=== PATIENT | male | born 1965 | race Caucasian/White ===

== ENCOUNTER → 2019-04-18 | Outpatient (CLI) | payer OTHER ==
[~2019-04-18] MED LIST: 0.9 % SODIUM CHLORIDE 10 ML DISP.SYRIN. ID ONE; ASPI81TA50 PO; BUDE10.2 IH; GADOTERATE 5 MMOL/10ML VIAL. INT ART ONE; IOHEXOL 300 MG/ML 50 ML VIAL. INT ART ONE; LIDOCAINE 1% Multi-Dose 20 ML VIAL. ID ONE; VALS40TA2 PO
--- NOTE | 2019-04-18 16:47 | KCIC ---
PROCEDURE: Left shoulder injection using fluoroscopic guidance, prior to MR. HISTORY: Shoulder pain. TECHNIQUE: The procedure was explained to the patient as were potential risks, including among others infection, bleeding or allergic reaction. All questions were answered. Informed written and verbal consent was obtained. The shoulder was prepped and draped in the usual sterile manner. Following administration of local anesthetic, a 22-gauge needle was advanced into the anterior shoulder. Following negative aspiration, 12 cc of a solution of 5cc Omnipaque-300 contrast, 5 cc 1% lidocaine, 10 cc normal saline, and 0.1 cc gadolinium was injected without difficulty. The needle was removed. There was good hemostasis at the injection site. The patient left in stable condition without immediate complication. A single spot image is obtained. FLUOROSCOPY TIME:?22 seconds Electronically signed by: Rafael Castillo MD (04/18/2019 4:44 PM) [id number]
--- NOTE | 2019-04-18 16:47 | KCIC ---
MRI arthrogram of the left shoulder HISTORY: Left AC joint pain. Shoulder pain. Injury 3 months ago. TECHNIQUE: Routine multiplanar sequences are obtained. FINDINGS: Acromioclavicular joint is mildly degenerative. Full-thickness rotator cuff tear of the supraspinatus tendon measures 3 cm AP diameter with 3 cm retraction of the articular side fibers. Partial tearing through the more posterior rotator cuff. Partial subscapularis tendon tear. Mild rotator cuff muscle atrophy. Contrast enters the subdeltoid bursa. Glenohumeral joint is intact. Posterior through inferior labral tear Biceps tendinosis. Slight medial shift of the tendon at the upper bicipital groove with attenuation or partial tearing. No evidence of acute fracture. No aggressive bone destruction. IMPRESSION: 1. Posteroinferior labral tear. 2. Moderate full-thickness retracted rotator cuff tear of the supraspinatus tendon, with partial tearing through the remaining rotator cuff. 3. Biceps tendinosis with partial tearing and slight medial shift at the upper bicipital groove. Electronically signed by: Rafael Castillo MD (04/18/2019 4:44 PM) [id number]
== END | disposition home or self-care (01) ==
LOC: KCIC 14:21
PROVIDERS: ATTEND Nurse Practitioner Family
DX: S43.492A Other sprain of left shoulder joint, initial encounter (principal); S46.212A Strain of muscle, fascia and tendon of other parts of biceps, left arm, initial encounter; M75.102 Unspecified rotator cuff tear or rupture of left shoulder, not specified as traumatic; M77.8 Other enthesopathies, not elsewhere classified; M62.512 Muscle wasting and atrophy, not elsewhere classified, left shoulder; J44.9 Chronic obstructive pulmonary disease, unspecified; F17.200 Nicotine dependence, unspecified, uncomplicated; Z79.01 Long term (current) use of anticoagulants; X58.XXXA Exposure to other specified factors, initial encounter; Y93.89 Activity, other specified; Y92.89 Other specified places as the place of occurrence of the external cause; Y99.8 Other external cause status
CPT/HCPCS: 73040; 73222; A9575; J3490; Q9967